=== PATIENT | female | born 1990 | race Caucasian/White ===

== ENCOUNTER 2018-01-14 01:38 | Inpatient (IN) | payer BC ==
[2018-01-14] VITALS (27 sets, daily range): BP systolic 108–145; BP diastolic 58–95
[~2018-01-14] VITALS: Ht 160 cm; Wt 82.3 kg
[2018-01-14] MEDS ORDERED: PRENATAL TABLE1 EAC3 PO (02:03)
[2018-01-14] MEDS ORDERED: LEVOTHYROXINE88 MCG PO (02:04)
[2018-01-14] MEDS ORDERED: ZOLOFT50 MG PO (02:04)
[2018-01-14] MEDS ORDERED: ASPIR 8181 M1 PO (02:05)
[2018-01-14 03:23] LABS: BASOPHIL (%) 0.4 % (0-1); BASOPHIL COUNT 0.1 K/uL (0-0.1); EOSINOPHIL (%) 1.2 % (0-5); EOSINOPHIL COUNT 0.3 K/uL (0-0.3); HEMATOCRIT 35.8 % (36.0-46.0); HEMOGLOBIN 12.2 G/DL (11.9-15.5); IMMATURE GRANULOCYTE (%) 1.2 % (0.0-0.7); LYMPHOCYTE (%) 16.5 % (15-42); LYMPHOCYTE COUNT 3.5 K/uL (1.0-2.8); MCHC 34.1 G/DL (30.0-36.0); MCV 88.2 FL (83-99); MONOCYTE (%) 7.4 % (3-12); MONOCYTE COUNT 1.6 K/uL (0-0.8); NEUTROPHIL (%) 73.3 % (45-76); NEUTROPHIL COUNT 15.6 K/uL (1.8-6.4); PLATELET COUNT 270 K/uL (156-360); RBC DIS.WIDTH-CV 13.2 % (11.8-14.6); RBC DIS.WIDTH-SD 42.5 % (39-53); RED BLOOD COUNT 4.06 M/uL (3.80-5.20); WHITE BLOOD COUNT 21.2 K/uL (4.1-10.2)
[2018-01-14 03:55] LABS: ALBUMIN 3.3 g/dL (3.2-4.8)
[2018-01-14 03:56] LABS: CHLORIDE 105 mEq/L (99-109); SODIUM 137 mEq/L (136-147)
[2018-01-14 03:58] LABS: GLUCOSE 80 mg/dL (70-99); TOTAL PROTEIN 6.2 g/dL (6.4-8.3)
[2018-01-14 04:00] LABS: TOTAL BILIRUBIN 0.3 mg/dL (0.0-1.0)
[2018-01-14 04:01] LABS: ALKALINE PHOSPHATASE 186 IU/L (3-129)
[2018-01-14 04:02] LABS: CREATININE 0.6 mg/dL (0.6-1.3); GFR ESTIMATE (CALCULATED) > 59 mL/min/
[2018-01-14 04:03] LABS: AST (GOT) 11 IU/L (2-34); UREA NITROGEN (BUN) 10 mg/dL (9-23)
[2018-01-14 04:04] LABS: ALT (GPT) 7 IU/L (3-49)
[2018-01-14 04:05] LABS: URIC ACID 4.3 mg/dL (3.1-9.2)
[2018-01-14 05:36] LABS: LACTATE DEHYDROGENASE 138 IU/L (20-246)
[2018-01-14 07:03] LABS: UR CREATININE CONCENTRATION 26.9 MG/DL
[2018-01-15 06:43] LABS: BASOPHIL (%) 0.4 % (0-1); BASOPHIL COUNT 0.1 K/uL (0-0.1); EOSINOPHIL (%) 1.7 % (0-5); EOSINOPHIL COUNT 0.5 K/uL (0-0.3); HEMATOCRIT 31.5 % (36.0-46.0); HEMOGLOBIN 10.4 G/DL (11.9-15.5); IMMATURE GRANULOCYTE (%) 1.5 % (0.0-0.7); LYMPHOCYTE (%) 21.2 % (15-42); LYMPHOCYTE COUNT 5.7 K/uL (1.0-2.8); MCH 29.7 PG (29.0-34.0); MONOCYTE (%) 5.2 % (3-12); MONOCYTE COUNT 1.4 K/uL (0-0.8); NEUTROPHIL COUNT 18.7 K/uL (1.8-6.4); PLATELET COUNT 273 K/uL (156-360); RBC DIS.WIDTH-CV 13.4 % (11.8-14.6); RBC DIS.WIDTH-SD 44.4 % (39-53); WHITE BLOOD COUNT 26.8 K/uL (4.1-10.2)
[2018-01-15 07:35] VITALS: BP 117/72
[2018-01-15 14:00] VITALS: BP 118/79
[2018-01-15 23:19] VITALS: BP 119/59
[2018-01-16 07:15] VITALS: BP 118/82
[2018-01-16] MEDS ORDERED: DOCUSATE SODIU100 MG PO (10:59)
== END 2018-01-16 11:38 | disposition home or self-care (01) | DRG 775 ==
LOC: LDRP-OP → 2WEST 01:39 → LDRP-OP 13:25 → 2WEST 01-16 11:38 → LDRP-OP 02-07 14:54
PROVIDERS: Advanced Practice Midwife
PROC: 10H073Z Insertion of Monitoring Electrode into Products of Conception, Via Natural or Artificial Opening (ICD-10-PCS; principal; 2018-01-14)
PROC: 10D07Z6 Extraction of Products of Conception, Vacuum, Via Natural or Artificial Opening (ICD-10-PCS; principal; 2018-01-14)
PROC: 0DQR0ZZ Repair Anal Sphincter, Open Approach (ICD-10-PCS; principal; 2018-01-14)
DX: O48.0 Post-term pregnancy (principal); O76 Abnormality in fetal heart rate and rhythm complicating labor and delivery; O99.824 Streptococcus B carrier state complicating childbirth; O99.284 Endocrine, nutritional and metabolic diseases complicating childbirth; O99.340 Other mental disorders complicating pregnancy, unspecified trimester; O77.0 Labor and delivery complicated by meconium in amniotic fluid; O70.20 Third degree perineal laceration during delivery, unspecified; E06.3 Autoimmune thyroiditis; F32.9 Major depressive disorder, single episode, unspecified; Z3A.41 41 weeks gestation of pregnancy; Z37.0 Single live birth
CPT/HCPCS: 80053; 82570; 83615; 84156; 84550; 85025; C1755; J0595; J2540; J3010; J7120; Q0169